=== PATIENT | female | born 1975 | race Caucasian/White ===

== ENCOUNTER → 2021-04-21 | Outpatient (CLI) | payer OTHER | LOC: MRI 10:56 | PROVIDERS: ATTEND Internal Medicine Rheumatology | DX: M47.22 Other spondylosis with radiculopathy, cervical region (principal); M48.02 Spinal stenosis, cervical region; M50.11 Cervical disc disorder with radiculopathy, high cervical region; M25.78 Osteophyte, vertebrae ==

== ENCOUNTER → 2021-08-15 | Outpatient (CLI) | payer OTHER ==
[~2021-08-15] VITALS: Ht 157.5 cm; Wt 85.7 kg
[~2021-08-15] MED LIST: ADDERALL 30 MG30 MG PO; CLONAZEPAM 1 MG1 M1 PO; LEXAPRO 10 MG T10 M2 PO; LYRICA225 MG PO; MELOXICAM15 MG; NORVASC5 MG PO; SEROQUEL 50 MG50 M1 PO; SOMA350 MG PO; TRAMADOL 50 MG50 MG PO; TRIAMTERENE-HC1 EAC2 PO
[2021-08-15 10:14] VITALS: BP 106/70
--- NOTE | 2021-08-15 10:28 | NUR ---
[facility] Assessment: 1. History of Osteoarthritis: SPINE History of Rheumatoid Arthritis: NONE 2. Height: 5 ft. 2 in. 157.5 cm. Weight: 189.0 lb. oz. 85.730 kg. Patient's BMI: 34.6 3. Vital Signs: BP: 106/70 Pulse: 70 Resp: 16 Temp: 02 Sat: 97 ECG Mon: 4. Pain Intensity: 3 TO 10 5. Fall Risk: Dizziness: Y Needs help standing or walking: N Fallen in the last 3 months: Y Fall risk comments: 6. Patient on Blood Thinner: None 7. History of Hypertension: Y 8. Opioid Therapy greater than 6 weeks: Y Opiate Contract Signed: 9. Risk Assessment Tool Provided: MOD-4 10. Functional Assessment Tool: 61/70 11. Recreational Drug Use: Never Drug Type: Tobacco Use: Current Every Day Smoker Tobacco Type: Cigarettes Amount or Packs/day: 1PK/DAY How Many Years: 30 Alcohol Use: No Frequency: Quant:
== END ==
LOC: PAIN 06:53
PROVIDERS: ATTEND Anesthesiology Pain Medicine
DX: M54.12 Radiculopathy, cervical region (principal); M48.02 Spinal stenosis, cervical region; Z88.8 Allergy status to other drugs, medicaments and biological substances; Z79.899 Other long term (current) drug therapy